=== PATIENT | female | born 1995 | race Caucasian/White ===

== ENCOUNTER 2023-07-09 15:20 | Emergency (ER) | payer OTHER ==
[~2023-07-09] VITALS: Ht 160 cm; Wt 71.4 kg
[2023-07-09 15:47] LABS: Basophils # (auto) 0.1 10 ^3/uL (0-0.2); Basophils % (auto) 0.5 % (0.0-2.0); Eosinophils # (auto) 0.1 10 ^3/uL (0-0.8); Eosinophils % (auto) 0.6 % (0.0-7.0); Hematocrit 35.2 % (36.0-46.0); Hemoglobin 12.4 g/dL (12.2-16.2); Lymphocytes # (auto) 3.2 10 ^3/uL (0.4-5.4); Lymphocytes % (auto) 29.3 % (10.0-50.0); Mean Corpuscular Hemoglobin 31.6 pg (28.0-32.0); Mean Corpuscular Hgb Conc. 35.3 g/dL (32.0-36.0); Mean Corpuscular Volume 89.5 fL (80.0-100.0); Monocytes # (auto) 0.5 10 ^3/uL (0-1.3); Monocytes % (auto) 4.8 % (0.0-12.0); Neutrophils % (auto) 64.8 % (37.0-80.0); Red Blood Cells 3.93 10^6/uL (4.0-5.20); Red Cell Distribution Width 13.2 % (11.8-14.3); White Blood Cell 10.8 10^3/uL (4.4-10.8)
[2023-07-09 15:54] LABS: Urine Bacteria FEW /hpf (None Seen); Urine Blood Negative /uL (Negative); Urine Clarity Clear (Clear); Urine Color Yellow (Yellow); Urine Mucus FEW (None Seen); Urine Protein, UAD Negative (Negative); Urine Specific Gravity 1.022 (1.001-1.035); Urine Urobilinogen Normal (Negative); Urine WBC 1 /hpf (0 - 5); Urine pH 5.5 (5.0-8.0)
[2023-07-09 16:06] LABS: Alanine Aminotransferase 27 U/L (7-40); Albumin 4.3 g/dL (3.2-4.8); Alkaline Phosphatase 52 U/L (46-116); Anion Gap 6 (5-15); Aspartate Aminotransferase 19 U/L (13-40); Blood Urea Nitrogen 11 mg/dL (9-23); Calcium 9.6 mg/dL (8.5-10.1); Carbon Dioxide 25 mmol/L (20-30); Chloride 107 mmol/L (98-107); Glucose 101 mg/dL (74-106); Potassium 3.9 mmol/L (3.5-5.1); Sodium 138 mmol/L (136-145)
[2023-07-09 16:07] LABS: Bilirubin, Total 0.5 mg/dL (0.2-1.0); Total Protein 6.7 g/dL (5.7-8.2)
[2023-07-09] MEDS ORDERED: CEPHALEXIN 250 MG CAP PO ONE (18:45)
[2023-07-09] MEDS ORDERED: CEPH250C PO (18:48)
[2023-07-09 19:22] VITALS: BP 103/59; TEMP 97.9
[2023-07-09 19:27] VITALS: PULSE 61; RESP 16; O2SAT 93
== END 2023-07-09 19:32 | disposition home or self-care (01) ==
LOC: ER 15:20
DX: O23.41 Unspecified infection of urinary tract in pregnancy, first trimester (principal); R10.2 Pelvic and perineal pain; N39.0 Urinary tract infection, site not specified; Z90.49 Acquired absence of other specified parts of digestive tract; Z3A.09 9 weeks gestation of pregnancy
CPT/HCPCS: 36415; 76801; 80053; 81001; 84702; 85025

== ENCOUNTER 2023-10-21 04:46 | Observation (INO) | payer OTHER ==
[~2023-10-21] VITALS: Ht 160 cm; Wt 54.4 kg
[~2023-10-21 04:46] MED LIST: CEPH250C PO
[2023-10-21] MEDS ORDERED: ACETAMINOPHEN 325 MG TAB PO ONE (05:45)
[2023-10-21 06:43] LABS: Urine Epithelial Cast None Seen /hpf (<5)
[2023-10-21 06:55] LABS: Urine Bacteria FEW /hpf (None Seen); Urine Blood Negative /uL (Negative); Urine Clarity HAZY (Clear); Urine Hyaline Cast FEW /lpf (0 - 2); Urine Protein, UAD Negative (Negative); Urine Specific Gravity 1.016 (1.001-1.035); Urine Urobilinogen Normal (Negative); Urine WBC 7 /hpf (0 - 5); Urine pH 6.5 (5.0-8.0)
[2023-10-21 06:59] LABS: Urine Color Straw (Yellow)
[2023-10-21] MEDS ORDERED: NITR-87 PO (07:25)
[2023-10-21] MEDS ORDERED: [UNRECOGNIZED DRUG - CODE] PO (07:26)
== END 2023-10-21 07:48 | disposition home or self-care (01) ==
LOC: LDRP 04:46
PROVIDERS: ADMIT Obstetrics & Gynecology; ATTEND Obstetrics & Gynecology
DX: O23.42 Unspecified infection of urinary tract in pregnancy, second trimester (principal); O26.892 Other specified pregnancy related conditions, second trimester; O99.612 Diseases of the digestive system complicating pregnancy, second trimester; R10.32 Left lower quadrant pain; R55 Syncope and collapse; K57.92 Diverticulitis of intestine, part unspecified, without perforation or abscess without bleeding; Z3A.24 24 weeks gestation of pregnancy
CPT/HCPCS: 59025; 76815; 81001; 81002; 82948; 82962; 94760; G0378

== ENCOUNTER 2025-03-15 14:03 | Emergency (ER) | payer SELFPAY ==
[~2025-03-15] VITALS: Ht 160 cm; Wt 69.0 kg
[~2025-03-15 14:03] MED LIST changes: -CEPH250C PO; +NITR-87 PO; +[UNRECOGNIZED DRUG - CODE] PO
--- NOTE | 2025-03-15 14:41 | ED.PDOC ---
History of Present Illness HPI Comments 30 year old female with a Hx of Migrans presents to the ED for the c/c of a Migraine with associated N/. Pt states that her Migraine has been onset for the past 5x days with no alleviating factors at this time. Pt states that her Migraine is located behind both eyes, but is worse behind her right eye at this point in time. No other associated symptoms, modifiers, recent injuries or sick contacts present at this time. Time Seen by MD: 14:37 Primary Care Provider: TITI Zayas Notes: Nurses Notes, Medications, Allergies Allergies: Coded Allergies: NO KNOWN ALLERGIES (Unverified , 07/09/23) Home Meds Active Scripts Vit W/ Ferrous Glucon ( Pnv 6-0.5 mg) 1 Tab Tab, 1 TAB PO DAILY fo r 90 Days, #90 TAB 3 Refills Prov:ANKUSH DIAZ [facility] 10/21/23 Nitrofurantoin Monohydrate Mac (Macrobid) 100 Mg Cap, 100 MG PO BID for 7 Days, #14 CAP Prov:ANKUSH DIAZ [facility] 10/21/23 Information Source: Patient Mode of Arrival: Ambulatory Severity: Moderate Timing: Days Duration: Since onset, Days Prehospital treatment: None Past Medical History PAST MEDICAL HISTORY: Denies Surgical History: Appendectomy, Denies all surgeries TAX COMPLIANCE REPRESENTATIVE History: No Pertinent TAX COMPLIANCE REPRESENTATIVE History Family History Family History: Reviewed,noncontributory to illness, No family hx of Cancer, No family hx of DM, No family hx of Heart mariya, No family hx of HTN, No family hx ofKidney mariya, No family hx of Liver mariya, No family hx of Lung mariya, No family hx of Stroke Social History Smoker: Non-Smoker Alcohol: Denies ETOH Use Drugs: Denies Drug Use Lives In: Home Constitutional: denies: chills, diaphoresis, fatigue, fever, malaise, sweats, weakness, others EENTM: denies: blurred vision, double vision, ear bleeding, ear discharge, ear drainage, ear pain, ear ringing, eye pain, eye redness, hearing loss, mouth pain, mouth swelling, nasal discharge, nose bleeding, nose congestion, nose pain, photophobia, tearing, throat pain, throat swelling, voice changes, others Respiratory: denies: cough, hemoptysis, orthopnea, SOB at rest, shortness of breath, SOB with excertion, stridor, wheezing, others Cardiovascular: denies: chest pain, dizzy spells, diaphoresis, Dyspnea on exertion, edema, irregular heart beat, left arm pain, lightheadedness, palpitations, PND, syncope, others Gastrointestinal: denies: abdomen distended, abdominal pain, blood streaked bowels, constipated, diarrhea, dysphagia, difficulty swallowing, hematemesis, melena, nausea, poor appetite, poor fluid intake, rectal bleeding, rectal pain, vomiting, others Genitourinary: denies: abnormal vagina bleeding, burning, dyspareunia, dysuria, flank pain, frequency, hematuria, incontinence, pain, , vagina discharge, urgency, others Neurological: reports: headache; denies: dizziness, fainting, left sided numbness, left sided weakness, numbness, paresthesia, pre-existing deficit, right sided numbness, right sided weakness, seizure, speech problems, tingling, tremors, weakness, others Musculoskeletal: denies: back pain, gout, joint pain, joint swelling, muscle pain, muscle stiffness, neck pain, others Integumetry: denies: bruises, change in color, change in hair/nails, dryness, laceration, lesions, lumps, rash, wounds, others Allergic/Immunocompromised: denies: Difficulty Healing, Frequent Infections, Hives, Itching, others Hematologic/Lymphatic: denies: anemia, blood clots, easy bleeding, easy bruising, swollen glands, others Endocrine: denies: excessive hunger, excessive sweating, excessive thirst, excessive urination, flushing, intolerance to cold, intolerance to heat, unexplained weight gain, unexplained weight loss, others Psychiatric: denies: anxiety, bipolar disorder, depression, hopeless, panic disorder, schizophrenia, sleepless, suicidal, others All Other Systems: Reviewed and Negative Physical Exam General Appearance: Moderate Distress, Normal HEENT: Normal ENT Inspection, Pharynx Normal, TMs Normal Neck: Full Range of Motion, Non-Tender, Normal, Normal Inspection Respiratory: Chest Non-Tender, Lungs Clear, No Respiratory Distress, Normal Breath Sounds Cardiovascular: No Edema, No JVD, No Murmur, Regular Rate/Rhythm Breast Exam: Deferred Gastrointestinal: Non Tender, No Pulsatile Mass, Soft Genitalia: Deferred Pelvic: Deferred Rectal: Deferred Extremities: No calf tenderness, Normal range of motion, Non-tender, No pedal edema Musculoskeletal : Apperance: Normal Neurologic: Alert, Disoriented, Headache, No Motor Deficits, Normal Mood Cerebellar Function: Normal Reflexes: Normal Skin: Dry, Normal Color, Warm Lymphatic: No Adenopathy Was a procedure done? Was a procedure done?: No Differential Dx Considerations may include: Migraine, tension headache, viral syndrome X-Ray, Labs, Meds, VS Current Medications Medications (Trade) Dose Ordered Sig/Juve Route Start Time Stop Time Status Last Admin Sodium Chloride 1,000 ml @ 1,000 mls/hr Q1H ONCE IV 03/15/25 14:45 03/15/25 15:44 03/15/25 14:53 Ketorolac Tromethamine (Toradol Injection) 15 mg ONCE ONCE IV 03/15/25 14:45 03/15/25 14:46 DC 03/15/25 14:54 Acetaminophen (Tylenol Tablet) 650 mg ONCE ONCE PO 03/15/25 14:45 03/15/25 14:46 DC 03/15/25 14:54 Metoclopramide HCl (Reglan Injection) 10 mg ONCE ONCE IV 03/15/25 14:45 03/15/25 14:46 DC 03/15/25 14:54 Dexamethasone Sodium Phosphate (Decadron Injection) 10 mg ONCE ONCE IV 03/15/25 14:45 03/15/25 14:46 DC 03/15/25 14:54 Time of 1ST Reevaluation: 15:07 Reevaluation 1ST: Unchanged Patient Education/Counseling: Diagnosis, Treatment Family Education/Counseling: No Family Present SEPSIS Sepsis Screen Orders/Vitals/Labs Physician Orders Sodium Chloride 0.9% (03/15/25 14:45) Medications Medications Dose Ordered Sig/Juve Route Start Time Stop Time Status Last Admin Dose Admin Acetaminophen 650 mg ONCE ONCE PO 03/15/25 14:45 03/15/25 14:46 DC 03/15/25 14:54 Dexamethasone Sodium Phosphate 10 mg ONCE ONCE IV 03/15/25 14:45 03/15/25 14:46 DC 03/15/25 14:54 Ketorolac Tromethamine 15 mg ONCE ONCE IV 03/15/25 14:45 03/15/25 14:46 DC 03/15/25 14:54 Metoclopramide HCl 10 mg ONCE ONCE IV 03/15/25 14:45 03/15/25 14:46 DC 03/15/25 14:54 Sodium Chloride 1,000 ml @ 1,000 mls/hr Q1H ONCE IV 03/15/25 14:45 03/15/25 15:44 03/15/25 14:53 Departure 1 Departure Time of Disposition: 15:25 (Patient presenting with a migraine. Patient is feeling significantly better. We will discharge patient home with outpatient follow up) Impression: Primary Impression: Migraine Qualified Codes: G43.109 - Migraine with aura, not intractable, without status migrainosus Disposition: HOME / SELF CARE / HOMELESS Condition: Stable Additional Instructions: You likely had a migraine. You received medications in the ER. You can take tylenol and motrin as needed for pain. You should stay well rested and well hydrated. It is important to follow up with your regular doctor within one week. If your symptoms worsen or you have any other concerns then please return to the ER. Discharged With: Self Critical Care Note Critical Care Time?: No Stability Stability form required: No Heart Score Heart Score: Heart Score Response (Comments) Value History N/A 0 EKG N/A 0 Age N/A 0 Risk Factors N/A 0 Troponin N/A 0 Total 0 I personally scribed for SALO CHILD MD ([email or web address]) on 03/15/25 at 14:41. Electronically submitted by Edwar Akins ([email or web address]). SALO CHILD MD Mar 15, 2025 14:41
[2025-03-15] MEDS: SODIUM CHLORIDE 0.9% 1,000 ML IV ONE (14:53)
[2025-03-15] MEDS: METOCLOPRAMIDE HCL 5MG/ml INJ 2ml VIAL IV ONE (14:54)
[2025-03-15] MEDS: DexAMETHasone SOD PHOS 10MG/1ML VIAL INJ IV ONE (14:54)
[2025-03-15] MEDS: ACETAMINOPHEN 325 MG TAB PO ONE (14:54)
[2025-03-15] MEDS: KETOROLAC TROMETH 30 MG/ML 1ML VIAL IV ONE (14:54)
[2025-03-15 15:31] VITALS: BP 136/82; PULSE 63; RESP 16; TEMP 98.6; O2SAT 96
== END 2025-03-15 15:30 | disposition home or self-care (01) ==
LOC: ER 14:03
DX: G43.109 Migraine with aura, not intractable, without status migrainosus (principal); Z90.49 Acquired absence of other specified parts of digestive tract
CPT/HCPCS: 96361; 96374; 96375; 99284; J1100; J1885; J2765; J7030

== ENCOUNTER 2025-09-20 07:05 | Inpatient (IN) | payer OTHER ==
[~2025-09-20] VITALS: Ht 160 cm; Wt 70.3 kg
--- NOTE | 2025-09-20 07:34 | ED.PDOC ---
History of Present Illness HPI Comments 30-year-old female brought in by ambulance with a prior medical history of POTS, hypermobile EDS: Surgical history of appendectomy, tonsillectomy and a chief complaint of the syncopal episode. Reports on having had one syncopal episode at 5:30 a.m. this morning which was unwitnessed with status post nausea and vomiting and states on not falling but did have a near syncopal episode at 6:00 a.m. for which she did hit the back of her head against a wall. Patient notes on having had heart palpitations and dizziness prior to the 2nd syncopal episode. Patient is currently complaining of head pain and a mild headache and a C-collar was placed on scene by EMS. Denies any other symptoms at this time. Denies chills, fever, /D, SOB, CP. No other associated symptoms, modifiers, recent injuries or sick contacts present at this time. Chief Complaint: Syncope Time Seen by MD: 07:34 Primary Care Provider: [facility] Review[facility] Notes: Nurses Notes, Medications, Allergies Allergies: Coded Allergies: NO KNOWN ALLERGIES (Unverified , 07/09/23) Home Meds Active Scripts Vit W/ Ferrous Glucon ( Pnv 6-0.5 mg) 1 Tab Tab, 1 TAB PO DAILY for 90 Days, #90 TAB 3 Refills Prov:ANKUSH DIAZ [facility] 10/21/23 Nitrofurantoin Monohydrate Mac (Macrobid) 100 Mg Cap, 100 MG PO BID for 7 Days, #14 CAP Prov:ANKUSH DIAZ [facility] 10/21/23 Information Source: Patient, Emergency Med Personnel Mode of Arrival: EMS Severity: Moderate Timing: Hours Duration: Since onset, Hours Prehospital treatment: None Past Medical History PAST MEDICAL HISTORY: Denies Past Medical History (Other): POTS, HYPERMOBILE EDS Surgical History: Appendectomy, Tonsillectomy EXERCISER History: No Pertinent EXERCISER History Family History Family History: Reviewed,noncontributory to illness, Unknown Social History Smoker: Non-Smoker Alcohol: Denies ETOH Use Drugs: Denies Drug Use Lives In: Home Constitutional: denies: chills, diaphoresis, fatigue, fever, malaise, sweats, weakness, others EENTM: denies: blurred vision, double vision, ear bleeding, ear discharge, ear drainage, ear pain, ear ringing, eye pain, eye redness, hearing loss, mouth pain, mouth swelling, nasal discharge, nose bleeding, nose congestion, nose pain, photophobia, tearing, throat pain, throat swelling, voice changes, others Respiratory: denies: cough, hemoptysis, orthopnea, SOB at rest, shortness of breath, SOB with excertion, stridor, wheezing, others Cardiovascular: reports: palpitations, syncope; denies: chest pain, dizzy spells, diaphoresis, Dyspnea on exertion, edema, irregular heart beat, left arm pain, lightheadedness, PND, others Gastrointestinal: reports: nausea, vomiting; denies: abdomen distended, ab dominal pain, blood streaked bowels, constipated, diarrhea, dysphagia, difficulty swallowing, hematemesis, melena, poor appetite, poor fluid intake, rectal bleeding, rectal pain, others Genitourinary: denies: abnormal vagina bleeding, burning, dyspareunia, dysuria, flank pain, frequency, hematuria, incontinence, pain, , vagina discharge, urgency, others Neurological: reports: dizziness; denies: fainting, headache, left sided numbness, left sided weakness, numbness, paresthesia, pre-existing deficit, right sided numbness, right sided weakness, seizure, speech problems, tingling, tremors, weakness, others Musculoskeletal: denies: back pain, gout, joint pain, joint swelling, muscle pain, muscle stiffness, neck pain, others Integumetry: denies: bruises, change in color, change in hair/nails, dryness, laceration, lesions, lumps, rash, wounds, others Allergic/Immunocompromised: denies: Difficulty Healing, Frequent Infections, Hives, Itching, others Hematologic/Lymphatic: denies: anemia, blood clots, easy bleeding, easy bruising, swollen glands, others Endocrine: denies: excessive hunger, excessive sweating, excessive thirst, excessive urination, flushing, intolerance to cold, intolerance to heat, unexplained weight gain, unexplained weight loss, others Psychiatric: denies: anxiety, bipolar disorder, depression, hopeless, panic disorder, schizophrenia, sleepless, suicidal, others All Other Systems: Reviewed and Negative Physical Exam General Appearance: Moderate Distress, Normal HEENT: Normal ENT Inspection, Pharynx Normal, TMs Normal Neck: Full Range of Motion, Non-Tender, Normal, Normal Inspection Respiratory: Chest Non-Tender, Lungs Clear, No Accessory Muscle Use, No Respiratory Distress, Normal Breath Sounds Cardiovascular: No Edema, No JVD, No Murmur, No Gallop, Normal Peripheral Pulses, Regular Rate/Rhythm Breast Exam: Deferred Gastrointestinal: No Organomegaly, Non Tender, No Pulsatile Mass, Normal Bowel Sounds, Soft Genitalia: Deferred Pelvic: Deferred Rectal: Deferred Extremities: No calf tenderness, Normal capillary refill, Normal inspection, Normal range of motion, Non-tender, No pedal edema Musculoskeletal : Apperance: Normal Neurologic: Alert, medical laboratory scientist II-XII nml as Tested, No Motor Deficits, Normal Affect, Normal Mood, No Sensory Deficits Cerebellar Function: NOT DONE Reflexes: NOT DONE Skin: Dry, Normal Color, Warm Peripheral Pulses: 3+ Radial (R), 3+ Radial (L) Lymphatic: No Adenopathy Was a procedure done? Was a procedure done?: No Differential Dx Considerations may include: Syncope Electrolyte imbalance X-Ray, Labs, Meds, VS Vital Signs Date Time Temp Pulse Resp B/P (MAP) Pulse Ox O2 Delivery O2 Flow Rate FiO2 09/20/25 07:17 98.3 124 18 113/70 100 98.3 Patient alert. Possible syncope. Chronic history. Tachycardia. Saturation pristine on room air. Respiratory rate within normal limits. Establish intravenous access. Was given fluids. EKG reviewed does not show any acute changes. Continue monitoring. Time of 1ST Reevaluation: 07:40 Reevaluation 1ST: Unchanged Patient Education/Counseling: Diagnosis, Treatment, Prognosis Family Education/Counseling: No Family Present SEPSIS Sepsis Screen Physician Orders Troponin-I Hs (09/20/25 07:28) Complete Blood Count (09/20/25 07:28) Chest Portable (09/20/25 07:28) Urinalysis (09/20/25 07:28) Basic Metabolic Panel (09/20/25 07:28) Sodium Chloride 0.9% (09/20/25 07:30) Head Without Contrast (09/20/25 07:28) Vital Signs Date Time Temp Pulse Resp B/P (MAP) Pulse Ox O2 Delivery O2 Flow Rate FiO2 09/20/25 07:17 98.3 124 18 113/70 100 98.3 Departure 1 Departure Time of Disposition: 07:42 Impression: Primary Impression: Syncope Qualified Codes: R55 - Syncope and collapse Disposition: 09 ADMITTED INPATIENT Admit to: Med Surg Condition: Guarded Critical Care Note Critical Care Time?: No Stability Stability form required: No Heart Score Heart Score: Heart Score Response (Comments) Value History Slightly Suspicious 0 EKG Normal 0 Age <45 0 Risk Factors No known risk factors 0 Troponin Normal limit 0 Total 0 I personally scribed for OLIVA SAPP MD ([email or web address]) on 09/20/25 at 07:34. Electronically submitted by Andre Toribio ([email or web address]). OLIVA SAPP MD Sep 20, 2025 07:34
[2025-09-20 07:55] VITALS: PULSE 99; RESP 14; O2SAT 97
[2025-09-20 07:56] LABS: Hematocrit 40.8 % (36.0-46.0); Hemoglobin 13.6 g/dL (12.2-16.2); Mean Corpuscular Hemoglobin 30.4 pg (28.0-32.0); Mean Corpuscular Volume 91.1 fL (80.0-100.0); Nucleated Red Blood Cells % 0.0 %
[2025-09-20 07:58] LABS: Potassium 4.5 mmol/L (3.5-5.1); Sodium 144 mmol/L (136-145)
[2025-09-20 08:00] LABS: Anion Gap 11 (5-15); Calcium 9.0 mg/dL (8.7-10.4); Carbon Dioxide 26 mmol/L (20-31)
[2025-09-20 08:02] LABS: Chloride 107 mmol/L (98-107)
[2025-09-20 08:05] LABS: BUN/Creatinine Ratio 9.8 (10.0-20.0); Blood Urea Nitrogen 8 mg/dL (9-23); Glucose 100 mg/dL (74-106)
[2025-09-20] MEDS: SODIUM CHLORIDE 0.9% 1,000 ML IV ONE ×2 (08:07→12:44)
--- NOTE | 2025-09-20 08:14 | DVH ---
CHEST RADIOGRAPH INDICATION: sob TECHNIQUE: XY CHEST PORTABLE Comparison: None FINDINGS: The cardiac silhouette is unremarkable. The lungs demonstrate no pulmonary airspace consolidation. The pulmonary vasculature is unremarkable. There is no pleural effusion. There is no pneumothorax. IMPRESSION: No pulmonary airspace consolidation.
--- NOTE | 2025-09-20 08:21 | DVH ---
CLINICAL INFORMATION: Syncope. TECHNIQUE: Axial imaging was obtained through the brain without contrast. Coronal and sagittal reformatted images were obtained, reviewed, and stored. Images were reviewed in brain and bone windows. All CT scans at this medical facility are performed using dose modulation techniques as appropriate to a performed exam including the following: Automated exposure control was utilized; adjustment of the MA and/or KV according to patient size; and use of iterative reconstruction technique. CTDIvol = 55.02 mGy DLP = 1084.38 mGy-cm COMPARISON: None FINDINGS: There is no acute intracranial hemorrhage. No mass effect or midline shift. The ventricles and sulci are within normal limits in size for age. Basal cisterns are patent. The calvarium is unremarkable. Paranasal sinuses and mastoid air cells are clear. IMPRESSION: No CT evidence of acute intracranial abnormality.
[2025-09-20] MEDS ORDERED: NITROGLYCERIN 0.4 MG SL TAB SL PRN (10:30)
[2025-09-20] MEDS ORDERED: DOCUSATE SOD 100 MG CAP PO PRN (10:30)
[2025-09-20] MEDS ORDERED: MORPHINE SULFATE 4 MG/ML SYR/VIAL IV PRN (10:45)
[2025-09-20] MEDS ORDERED: SERT-289 PO (11:16)
[2025-09-20] MEDS ORDERED: FLU01T PO (11:16)
[2025-09-20] MEDS ORDERED: ATOM100C PO (11:16)
[2025-09-20] MEDS ORDERED: BUPR150T8 PO (11:16)
--- NOTE | 2025-09-20 11:18 | DVHHP2 ---
History of Present Illness Reason for Visit: Syncope History of Present Illness Yesenia Cary is a 30-year-old female with past medical history of hypermobile EDH, depression, anxiety, and new diagnosis of POTS, who came to the hospital for syncopal episode. [facility] She has been following up with her primary for near syncope episodes and palpitations. Previously she was diagnosed with anxiety. As the episodes continued she was recently diagnosed with POTS less than 2 months ago. She has not been to see a county coroner yet. Patient states she has been having periods of near syncope, but has never passed out until this morning. She states she woke up repositioned, became nauseated, went to go to the bathroom then passed out. She rested for about 30 minutes, then got up again, and passed out again, this time hitting her head. That is when her called EMS. Cardiovascular: Other (POTS) Psych: Anxiety, Depression Past Surgical History: Appendectomy, Other (right hip repair), Tonsillectomy Smoke: No ALCOHOL: none Drugs: None Lives: with Family Domestic Violence: Neg Review of Systems Constitutional: No: Fever, Chills, Sweats, Weakness, Malaise, Other Eyes: No: Pain, Vision change, Conjunctivae inflammation, Eyelid inflammation, Other, Redness ENT: No: Ear pain, Ear discharge, Nose pain, Nose discharge, Nose congestion, Mouth pain, Mouth swelling, Throat pain, Throat swelling, Other Respiratory: No: Cough, Dry, Shortness of breath, SOB with excertion, Wheezing, Hemoptysis, Pleuritic Pain, Sputum, Wheezing, Other Cardiovascular: Palpitations; No: Chest Pain, Orthopnea, Paroxysmal Noc. Dyspnea, Edema, Lt Headedness, Other Gastrointestinal: Nausea, Vomiting; No: Abdominal Pain, Diarrhea, Constipation, Melena, Hematochezia, Other Genitourinary: No Dysuria, No Frequency, No Incontinence, No Hematuria, No Retention, No Other Musculoskeletal: No: other, neck pain, shoulder pain, arm pain, back pain, hand pain, leg pain, foot pain Skin: No: Rash, Lesions, Jaundice, Bruising, Other Neurological: Weakness, Other (Syncope); No: Numbness, Incoordination, Change in speech, Confusion, Seizures Allergies: Coded Allergies: NO KNOWN ALLERGIES (Unverified , 07/09/23) Medications Current Medications Medications Dose Ordered Sig/Juve Route Start Time Stop Time Status Last Admin Dose Admin Acetaminophen/ Hydrocodone Bitart 1 tab Q4HP PRN PO 09/20/25 10:30 UNV Ondansetron HCl 4 mg Q4HP PRN IV 09/20/25 10:30 UNV Docusate Sodium 100 mg BIDPRN PRN PO 09/20/25 10:30 UNV Acetaminophen 650 mg Q6HP PRN PO 09/20/25 10:30 UNV Nitroglycerin 0.4 mg Q5MINP PRN SL 09/20/25 10:30 UNV Morphine Sulfate 2 mg Q30M PRN IV 09/20/25 10:30 UNV Exam Vital Signs Vital Signs Date Time Temp Pulse Resp B/P (MAP) Pulse Ox O2 Delivery O2 Flow Rate FiO2 09/20/25 09:55 97.8 90 12 107/64 (78) 97 97.8 09/20/25 07:55 Room Air* 0 21 General Appearance: Alert, Oriented X3, Cooperative, mild distress HEENT: Atraumatic, PERRLA Respiratory: Clear to auscultation, Normal air movement Cardiovascular: Other (SR-ST) Abdominal: Normal bowel sounds, Soft, No tenderness, No hepatospenomegaly Extremities: No clubbing, No cyanosis, No edema, Normal pulses Skin: No rashes, No breakdown, No significant lesion Neuro: Normal gait, Normal speech, Strength at 5/5 X4 ext Psych/Mental Status: Mental status NL, Mood NL Labs/Xrays Labs Test 09/20/25 08:01 09/20/25 07:39 Range/Units POC Glucose 100 70-106 mg/dl White Blood Count 18.3 H 4.4-10.8 10^3/uL Red Blood Count 4.47 4.0-5.20 10^6/uL Hemoglobin 13.6 12.2-16.2 g/dL Hematocrit 40.8 36.0-46.0 % Mean Corpuscular Volume 91.1 80.0-100.0 fL Mean Corpuscular Hemoglobin 30.4 28.0-32.0 pg Mean Corpuscular Hemoglobin Concent 33.4 32.0-36.0 g/dL Red Cell Distribution Width 12.1 11.8-14.3 % Platelet Count 363 140-450 10^3/uL Mean Platelet Volume 6.7 L 6.9-10.8 fL Neutrophils (%) (Auto) 86.2 H 37.0-80.0 % Lymphocytes (%) (Auto) 7.5 L 10.0-50.0 % Monocytes (%) (Auto) 5.7 0.0-12.0 % Eosinophils (%) (Auto) 0.4 0.0-7.0 % Basophils (%) (Auto) 0.2 0.0-2.0 % Neutrophils # (Auto) 15.8 H 1.6-8.6 10 ^3/uL Lymphocytes # (Auto) 1.4 0.4-5.4 10 ^3/uL Monocytes # (Auto) 1.0 0-1.3 10 ^3/uL Eosinophils # (Auto) 0.1 0-0.8 10 ^3/uL Basophils # (Auto) 0 0-0.2 10 ^3/uL Nucleated Red Blood Cells 0.0 % Sodium Level 144 136-145 mmol/L Potassium Level 4.5 3.5-5.1 mmol/L Chloride Level 107 98-107 mmol/L Carbon Dioxide Level 26 20-31 mmol/L Anion Gap 11 5-15 Blood Urea Nitrogen 8 L 9-23 mg/dL Creatinine 0.82 0.550-1.02 mg/dL Glomerular Filtration Rate Calc 98 >90 mL/min BUN/Creatinine Ratio 9.8 L 10.0-20.0 Serum Glucose 100 74-106 mg/dL Calcium Level 9.0 8.7-10.4 mg/dL Troponin I High Sensitivity < 3 L </=34 ng/L CHEST RADIOGRAPH FINDINGS: The cardiac silhouette is unremarkable. The lungs demonstrate no pulmonary airspace consolidation. The pulmonary vasculature is unremarkable. There is no pleural effusion. There is no pneumothorax. IMPRESSION: No pulmonary airspace consolidation. CT Head: COMPARISON: None FINDINGS: There is no acute intracranial hemorrhage. No mass effect or midline shift. The ventricles and sulci are within normal limits in size for age. Basal cisterns are patent. The calvarium is unremarkable. Paranasal sinuses and mastoid air cells are clear. IMPRESSION: No CT evidence of acute intracranial abnormality. SEPSIS Sepsis Screen Date sepsis recognized/suspect: Sep 20, 2025 Time Sepsis recognized/suspect: 075 Recent Procedure: No On Antibiotic Therapy: No Respiratory Rate >20: No Heart Rate >90: Yes Temp<36 C (96.8 F) or >38.3 C: No SBP <90 or MAP <65 mmHG: No New Acute Mental Status Change: No Is the patient on CPAP, BIPAP,: No Physician Orders Chest Portable (09/20/25 07:28) Urinalysis (09/20/25 07:28) Head Without Contrast (09/20/25 07:28) Admit (09/20/25 10:30) Code Status (09/20/25 10:30) 2 Gm Sodium Diet (09/20/25 Lunch) Hydrocodone-Acet 5/325mg Tab ([place] 5/32 (09/20/25 10:30) Ondansetron Hcl (Zofran) (09/20/25 10:30) Docusate Sodium Capsule (Colace Capsule) (09/20/25 10:30) Fall Risk Precautions In Place QSHIFT (09/20/25 10:30) Complete Blood Count (09/21/25 04:00) Comprehensive Metabolic Panel (09/21/25 04:00) Carotid Duplx W Color Dop (09/20/25 10:30) Condition: Serious (09/20/25 10:30) Acetaminophen Tablet (Tylenol Tablet) (09/20/25 10:30) Nitroglycerin Sublingual (Ntrostat Subli (09/20/25 10:30) Stat Ekg For Chest Pain (09/20/25 10:30) Notify Md Of Changes From Base (09/20/25 10:30) Cue Worker For 24 Hours (09/20/25 10:30) Emergency Dysrhythmia Protocol (09/20/25 10:30) Rhythm Strips Once Every Shift (09/20/25 10:30) Oxygen By Nasal Cannula (09/20/25 10:30) Morphine Sulfate Injection (09/20/25 10:45) Vital Signs Date Time Temp Pulse Resp B/P (MAP) Pulse Ox O2 Delivery O2 Flow Rate FiO2 09/20/25 09:55 97.8 90 12 107/64 (78) 97 97.8 09/20/25 07:55 99 14 97 Room Air* 0 21 09/20/25 07:55 97.7 99 14 112/75 (87) 97 97.7 12/23/25 07:17 98.3 124 18 113/70 100 98.3 Laboratory Tests Test 09/20/25 07:39 White Blood Count 18.3 10^3/uL (4.4-10.8) H Medications Medications Dose Ordered Sig/Juve Route Start Time Stop Time Status Last Admin Dose Admin Sodium Chloride 1,000 ml @ 1,000 mls/hr Q1H ONCE IV 09/20/25 07:30 09/20/25 08:29 DC 09/20/25 08:07 1,000 MLS/HR Assessment/Plan Assessment/Plan Assessment: Syncope, Possible dehydration, Sinus Tachycardia, POTS, ADHD, Anxiety, Depression, Plan: Admit to Tele, Cardiology consult, Carotid duplex, ECHO, IV hydration, Start low dose Metoprolol, Home medications reconciled, Plan discussed with: Patient My Orders Orders - IDANIA BARBOSA Procedure Category Date Status Time Admit ADMIT 09/20/25 Transmitted 10:30 Code Status CODE 09/20/25 Transmitted 10:30 2 Gm Sodium Diet DIET 09/20/25 Transmitted Lunch Hydrocodone-Acet PHA 09/20/25 In Process 5/325mg Tab ([place] 10:30 Ondansetron Hcl PHA 09/20/25 In Process (Zofran) 10:30 Docusate Sodium PHA 09/20/25 In Process Capsule (Colace 10:30 Fall Risk Precautions [facility] 09/20/[address] 10:30 Complete Blood Count LAB 09/21/25 Verified 04:00 Comprehensive LAB 09/21/25 Verified Metabolic Panel 04:00 Carotid Duplx W Color US 09/20/25 Logged DOP 10:30 Condition: Serious RAQUEL 09/20/25 In Process 10:30 Acetaminophen Tablet PHA 09/20/25 In Process (Tylenol Tablet) 10:30 Nitroglycerin PHA 09/20/25 In Process Sublingual (Ntrostat 10:30 Stat Ekg For Chest RAQUEL 09/20/25 In Process Pain 10:30 Notify Of Changes [facility] 09/20/25 In Process From Base 10:30 Cue Worker For [facility] 09/20/25 In Process 24 Hours 10:30 Emergency Dysrhythmia [facility] 09/20/25 In Process Protocol 10:30 Rhythm Strips Once [facility] 09/20/25 In Process Every Shift 10:30 Oxygen By Nasal RT 09/20/25 Transmitted Cannula 10:30 Morphine Sulfate PHA 09/20/25 In Process Injection 10:45 Date of Service: Sep 20, 2025 Billing Provider: IDANIA BARBOSA Common Visit Codes: [id number] INP/OBS CARE (MOD) IDANIA BARBOSA Sep 20, 2025 11:18
[2025-09-20] MEDS: METOPROLOL SUCCINATE XL 50 MG TAB PO ONE (12:32)
--- NOTE | 2025-09-20 13:32 | DVH ---
CLINICAL HISTORY: Syncope TECHNIQUE: Waite-scale, Color and Duplex Doppler imaging of the bilateral carotid systems was performed. COMPARISON: None FINDINGS: Right Carotid system: There is no plaque present in the right carotid system. Left Carotid system: There is no plaque present in the left carotid system. The following flow velocities were obtained (cm/sec). Right Carotid System: ICA PSV: 86 cm/sec ICA PDV: 19 cm/sec ICA/CCA Ratio: 1.1 Left Carotid System: ICA PSV: 72 cm/sec ICA PDV: 29 cm/sec ICA/CCA Ratio: 0.9 The right and left common carotid and external carotid arteries are patent. There is antegrade flow in both vertebral arteries and external carotid arteries. IMPRESSION: NORMAL RIGHT CAROTID SYSTEM. NORMAL LEFT CAROTID SYSTEM. Estimation of carotid stenosis is based on velocity parameters that correlate the residual internal carotid diameter with that of the more distal vessel in accordance with the [place] Symptomatic Carotid Endarterectomy Trial (NASCET).
[2025-09-20 15:07] LABS: Urine Protein, UAD Negative (Negative)
[2025-09-20] MEDS: HYDROcodone-ACET 5/325MG TAB PO PRN (15:15)
--- NOTE | 2025-09-20 17:28 | DVHINCON2 ---
Date Seen: Sep 20, 2025 Referring Physician NENITA Rapp Reason for Consultation syncope History of Present Illness Patient is a 30-year-old female admitted to the hospital with a chief of episode of syncope. Patient reports she has had episodes of dizziness and presyncope multiple times and was recently diagnosed with POTS. Early this morning patient started to have nausea and when she went to the restroom to vomit, she passed out for few seconds, no abnormal movements were noted, no tongue bite patient did not have any confusion after regaining consciousness. Patient denied any double vision, numbness or weakness in any of the extremities, headache. On arrival to the ED head CT was done which did not show any acute intracranial abnormality, carotid Doppler showed normal right and left carotid systems. She was tachycardic on arrival, BP within normal limits. Past medical history: Anxiety, ADHD, recently diagnosed parts Surgical history: Appendectomy, tonsillectomy Social history: Denies smoking, alcohol, drug use Home medications: Atomoxetine 100 mg daily, fludrocortisone 0.1 mg, sertraline 50 mg daily Past Medical History As per HPI Past Surgical History As per HPI Family History Nonsignificant Social History As per HPI Allergies: Coded Allergies: NO KNOWN ALLERGIES (Unverified , 07/09/23) Home Meds Reported Medications Atomoxetine Hcl (Strattera) 100 Mg Cap, 1 CAP PO QAM, #30 CAP 09/20/25 Bupropion Hcl (Wellbutrin Sr) 150 Mg Tab, 1 TAB PO DAILY, #60 TAB 5 Refills 09/20/25 Sertraline HCl (Sertraline HCl) 50 Mg Tab, 50 MG PO DAILY, TAB 09/20/25 Fludrocortisone Acetate (Florinef) 0.1 Mg Tb, 1 TAB PO DAILY, #90 TAB 1 Refill 09/20/25 Discontinued Scripts Vit W/ Ferrous Glucon ( Pnv 6-0.5 mg) 1 Tab Tab, 1 TAB PO DAILY for 90 Days, #90 TAB 3 Refills Prov:ANKUSH DIAZ CNM 10/21/23 Nitrofurantoin Monohydrate Mac (Macrobid) 100 Mg Cap, 100 MG PO BID for 7 Days, #14 CAP Prov:ANALILIADTONE LILLYDUHI CNM 10/21/23 Current Medications Current Medications Medications (Trade) Dose Ordered Sig/Juve Route PRN Reason Start Time Stop Time Status Last Admin Acetaminophen/ Hydrocodone Bitart ([place] 5/325MG Tab) 1 tab Q4HP PRN PO MODERATE PAIN (4-6 PAIN SCALE) 09/20/25 10:30 09/20/25 15:15 Ondansetron HCl (Zofran) 4 mg Q4HP PRN IV NAUSEA / VOMITING 09/20/25 10:30 Docusate Sodium (Colace Capsule) 100 mg BIDPRN PRN PO FOR CONSTIPATION 09/20/25 10:30 Acetaminophen (Tylenol Tablet) 650 mg Q6HP PRN PO PAIN SCALE 1-3 OR TEMP>100.4 09/20/25 10:30 Nitroglycerin (Ntrostat Sublingual) 0.4 mg Q5MINP PRN SL FOR CHEST PAIN 09/20/25 10:30 Morphine Sulfate 2 mg Q30M PRN IV FOR CHEST PAIN 09/20/25 10:45 Metoprolol Succinate (Toprol Xl) 25 mg DAILY PO 09/21/25 10:00 Fludrocortisone Acetate (Florinef Tablet) 0.1 mg DAILY PO 09/21/25 10:00 Sertraline HCl (Zoloft) 50 mg DAILY PO 09/21/25 10:00 Patient Own Medication 1 cap QAM PO 09/21/25 07:00 Bupropion HCl (Wellbutrin Tablet) 150 mg DAILY PO 09/21/25 10:00 Review of Systems Patient reported feeling better No dizziness while in bed, no chest pain, no shortness of breath, no headache Vital Signs Vital Signs Date Time Temp Pulse Resp B/P (MAP) Pulse Ox O2 Delivery O2 Flow Rate FiO2 09/20/25 16:00 76 09/20/25 15:16 97.6 18 103/67 (79) 97.6 09/20/25 12:28 96 09/20/25 07:55 Room Air* 0 21 Physical Exam Skin - Patients skin is warm and dry. HEENT - normocephalic, atraumatic, moist mucous membranes, no scleral icterus, no conjunctival pallor. Neck - full ROM, no LAD, no JVD Pulmonary - B/L clear breath sounds without any wheezing, rales or stridor cardiovascular - regular S1,S2 heard, no added sounds, no murmurs. peripheral pulses normal radial 2+, pedal 2+. No extremity edema GI - soft, nontender abdomen. no hepatospleenomegaly. Bowel sounds normoactive Neurological - Patient is A/O X 4 . Bilateral upper extremity strength 5/5, bilateral lower extremity strength 5/5, no facial droop, normal speech, no tremor, no sensory deficiets. Romberg sign negative Labs/Diagnostic Data Labs Test 09/20/25 14:05 09/20/25 08:01 09/20/25 07:39 Range/Units Urine Color Light-yellow Yellow Urine Clarity Turbid H Clear Urine pH 6.0 5.0-9.0 Urine Specific [place] 1.018 1.001-1.035 Urine Protein Negative Negative Urine Ketones Negative Negative Urine Blood Negative Negative /uL Urine Nitrite Negative Negative Urine Bilirubin Negative Negative Urine Urobilinogen Normal Negative mg/dL Urine Leukocyte Esterase Trace Negative /uL Urine RBC 9 0 - 4 /hpf Urine Microscopic WBC 1 0-5 /HPF Urine Squamous Epithelial Cells Few <5 /hpf Urine Bacteria Few H None Seen /hpf Urine Mucus Few None Seen Urine Glucose Normal Normal mg/dL POC Glucose 100 70-106 mg/dl White Blood Count 18.3 H 4.4-10.8 10^3/uL Red Blood Count 4.47 4.0-5.20 10^6/uL Hemoglobin 13.6 12.2-16.2 g/dL Hematocrit 40.8 36.0-46.0 % Mean Corpuscular Volume 91.1 80.0-100.0 fL Mean Corpuscular Hemoglobin 30.4 28.0-32.0 pg Mean Corpuscular Hemoglobin Concent 33.4 32.0-36.0 g/dL Red Cell Distribution Width 12.1 11.8-14.3 % Platelet Count 363 140-450 10^3/uL Mean Platelet Volume 6.7 L 6.9-10.8 fL Neutrophils (%) (Auto) 86.2 H 37.0-80.0 % Lymphocytes (%) (Auto) 7.5 L 10.0-50.0 % Monocytes (%) (Auto) 5.7 0.0-12.0 % Eosinophils (%) (Auto) 0.4 0.0-7.0 % Basophils (%) (Auto) 0.2 0.0-2.0 % Neutrophils # (Auto) 15.8 H 1.6-8.6 10 ^3/uL Lymphocytes # (Auto) 1.4 0.4-5.4 10 ^3/uL Monocytes # (Auto) 1.0 0-1.3 10 ^3/uL Eosinophils # (Auto) 0.1 0-0.8 10 ^3/uL Basophils # (Auto) 0 0-0.2 10 ^3/uL Nucleated Red Blood Cells 0.0 % Sodium Level 144 136-145 mmol/L Potassium Level 4.5 3.5-5.1 mmol/L Chloride Level 107 98-107 mmol/L Carbon Dioxide Level 26 20-31 mmol/L Anion Gap 11 5-15 Blood Urea Nitrogen 8 L 9-23 mg/dL Creatinine 0.82 0.550-1.02 mg/dL Glomerular Filtration Rate Calc 98 >90 mL/min BUN/Creatinine Ratio 9.8 L 10.0-20.0 Serum Glucose 100 74-106 mg/dL Calcium Level 9.0 8.7-10.4 mg/dL Troponin I High Sensitivity < 3 L </=34 ng/L Assessment Syncope likely vasovagal, dehydration h/o recent diagnosis of POTS Plan/Recommendation - orthostatic vitals performed showed blood pressure when lying down 98/63 with heart rate 81, standing up at 1 minute 104/64 heart rate 91, standing up 3 minutes 95/65 with a heart rate 94 - IV fluids for dehydration - continue fludrocortisone - echocardiogram pending We will follow up. Goals of care discussed with the patient and her at bedside. Plan discussed with Dr. Santana Plan discussed with: Patient, Other (RN) NYHA Physical activity limitations: NA Date of Service: Sep 20, 2025 Billing Provider: KENAN SANTANA Sr., MD Cardiology Common Codes: [id number] INP/OBS CARE (High) MARY IBANEZ RESIDENT Sep 20, 2025 17:28
[2025-09-20 18:35] VITALS: BP 101/62; PULSE 83; RESP 18; TEMP 97.9; O2SAT 96
[2025-09-20 20:00] VITALS: PULSE 76; PULSE 84; RESP 18
[2025-09-20 21:00] VITALS: BP 101/61; PULSE 85; RESP 16; TEMP 97.9; O2SAT 96
[2025-09-20] MEDS: ONDANSETRON HCL 4 MG/2 ML VIAL IV PRN (22:23)
[2025-09-21 01:00] VITALS: BP 95/62; PULSE 78; RESP 16; TEMP 98.7; O2SAT 95
[2025-09-21 02:40] VITALS: BP 110/71; PULSE 89
[2025-09-21 05:00] VITALS: BP 105/62; PULSE 74; RESP 17; TEMP 97.8; O2SAT 97
[2025-09-21] MEDS: ACETAMINOPHEN 325 MG TAB PO PRN (06:10)
[2025-09-21 06:30] LABS: Hematocrit 37.5 % (36.0-46.0); Hemoglobin 12.6 g/dL (12.2-16.2); Mean Corpuscular Hemoglobin 30.6 pg (28.0-32.0); Mean Corpuscular Volume 91.0 fL (80.0-100.0); Nucleated Red Blood Cells % 0.1 %
[2025-09-21 06:40] LABS: Alanine Aminotransferase 16 U/L (7-40); Albumin 4.1 g/dL (3.2-4.8); Alkaline Phosphatase 59 U/L (46-116); BUN/Creatinine Ratio 10.9 (10.0-20.0); Calcium 8.9 mg/dL (8.7-10.4); Carbon Dioxide 29 mmol/L (20-31); Glucose 93 mg/dL (74-106); Total Protein 6.7 g/dL (5.7-8.2)
[2025-09-21 06:41] LABS: Bilirubin, Total 0.3 mg/dL (0.2-1.0)
[2025-09-21 06:53] LABS: Anion Gap 7 (5-15); Potassium 4.3 mmol/L (3.5-5.1); Sodium 143 mmol/L (136-145)
[2025-09-21 06:54] LABS: Blood Urea Nitrogen 7 mg/dL (9-23); Chloride 107 mmol/L (98-107)
[2025-09-21 08:00] VITALS: PULSE 80; PULSE 81; RESP 18; O2SAT 96
[2025-09-21 09:00] VITALS: BP 105/59; PULSE 80; RESP 18; TEMP 98.3; O2SAT 96
[2025-09-21] MEDS: FLUDROCORTISONE ACETATE 0.1 MG TAB PO SCH (10:00)
[2025-09-21] MEDS: SERTRALINE HCL 50 MG TAB PO SCH (10:00)
[2025-09-21] MEDS ORDERED: METOPROLOL SUCCINATE XL 50 MG TAB PO SCH (10:00)
[2025-09-21] MEDS: MIDODRINE HCL 10 MG TAB PO SCH (10:00)
--- NOTE | 2025-09-26 08:06 | ECG ---
[facility] Test Date: 2025-09-20 Test Time: 17:47:40 Pat Name: JACOB GILES Department: [facility] ED Patient ID: [id number] Room: 0219T A Gender: F Data Typist: THEO : 1995 Requested By: OLIVA SAPP Order Number: [id number] Reading MD: Antolin Melo Measurements Intervals [place] Rate: 74 P: 46 KS: 153 QRS: 80 QRSD: 86 T: 44 QT: 382 QTc: 424 Interpretive Statements Sinus rhythm Electronically Signed On 09-29-2025 17:36:34 PST by Antolin Melo Please click the below link to view image of tracing.
== END 2025-09-21 10:43 | disposition left against medical advice (07) | DRG 641 ==
LOC: ER 07:05 → EDBD 07:05 → OVERFLOW 10:30 → TELE-CENTR 18:30
PROVIDERS: ADMIT Family Medicine; ATTEND Family Medicine
DX: E86.0 Dehydration (principal); F32.A Depression, unspecified; F41.9 Anxiety disorder, unspecified; F90.9 Attention-deficit hyperactivity disorder, unspecified type; Z53.29 Procedure and treatment not carried out because of patient's decision for other reasons; Z90.49 Acquired absence of other specified parts of digestive tract
CPT/HCPCS: 36415; 70450; 71045; 80048; 80053; 81001; 82962; 84484; 85025; 93005; 93886; 96360; G0378; J2405